=== PATIENT | male | born 1970 | race Caucasian/White ===

== ENCOUNTER 2024-05-05 09:22 | Day surgery (SDC) | payer OTHER ==
[2024-05-05 09:44] VITALS: BMI 26.6
[2024-05-05] MEDS ORDERED: KETAMINE HCL 100 MG/ML - 5ML VIAL ONE (10:09)
[2024-05-05 11:51] VITALS: RESP 16; TEMP 97.1
[2024-05-05 13:30] VITALS: BP 141/99; PULSE 72
== END 2024-05-05 12:40 | disposition home or self-care (01) ==
LOC: FECT 09:22
PROVIDERS: ATTEND Psychiatry & Neurology Psychiatry
PROC: GZB4ZZZ Other Electroconvulsive Therapy (ICD-10-PCS; principal; 2024-05-05 10:25)
DX: F33.2 Major depressive disorder, recurrent severe without psychotic features (principal)
CPT/HCPCS: 90870; 94760

== ENCOUNTER 2024-05-10 09:05 | Day surgery (SDC) | payer OTHER ==
[2024-05-03 15:35] VITALS: BMI 26.4
[2024-05-10] MEDS ORDERED: KETAMINE HCL 100 MG/ML - 5ML VIAL ONE (10:49)
[2024-05-10 11:55] VITALS: PULSE 74; RESP 18; TEMP 97.7
[2024-05-10 12:23] VITALS: BP 145/71
== END 2024-05-10 12:40 | disposition home or self-care (01) ==
LOC: FECT 09:05
PROVIDERS: ATTEND Student in an Organized Health Care Education/Training Program
PROC: GZB4ZZZ Other Electroconvulsive Therapy (ICD-10-PCS; principal; 2024-05-10 11:02)
DX: F33.2 Major depressive disorder, recurrent severe without psychotic features (principal)
CPT/HCPCS: 90870; 94760

== ENCOUNTER 2024-05-13 06:57 | Day surgery (SDC) | payer OTHER ==
[2024-05-04 16:27] VITALS: BMI 26.6
[2024-05-13 09:18] VITALS: RESP 18; TEMP 98
[2024-05-13 10:21] VITALS: BP 152/80; PULSE 74
== END 2024-05-13 10:17 | disposition home or self-care (01) ==
LOC: FECT 06:57
PROVIDERS: ATTEND Student in an Organized Health Care Education/Training Program
PROC: GZB4ZZZ Other Electroconvulsive Therapy (ICD-10-PCS; principal; 2024-05-13 08:23)
DX: F33.2 Major depressive disorder, recurrent severe without psychotic features (principal)
CPT/HCPCS: 90870; 94760

== ENCOUNTER 2024-05-19 08:36 | Day surgery (SDC) | payer OTHER ==
[2024-05-19 08:53] VITALS: BMI 26.6
[2024-05-19 11:30] VITALS: RESP 16
[2024-05-19 11:37] VITALS: TEMP 97.5
[2024-05-19 12:38] VITALS: BP 153/104; PULSE 84
== END 2024-05-19 12:35 | disposition home or self-care (01) ==
LOC: FECT 08:36
PROVIDERS: ATTEND Psychiatry & Neurology Psychiatry
PROC: GZB4ZZZ Other Electroconvulsive Therapy (ICD-10-PCS; principal; 2024-05-19 10:46)
DX: F33.2 Major depressive disorder, recurrent severe without psychotic features (principal)
CPT/HCPCS: 90870; 94760

== ENCOUNTER 2024-05-24 10:10 | Day surgery (SDC) | payer OTHER ==
[2024-05-16 12:24] VITALS: BMI 26.6
[2024-05-24 13:05] VITALS: RESP 19; TEMP 97.7
[2024-05-24 13:23] VITALS: BP 133/93; PULSE 75
== END 2024-05-24 13:28 | disposition home or self-care (01) ==
LOC: FECT 10:10
PROVIDERS: ATTEND Student in an Organized Health Care Education/Training Program
PROC: GZB4ZZZ Other Electroconvulsive Therapy (ICD-10-PCS; principal; 2024-05-24 11:48)
DX: F32.A Depression, unspecified (principal)
CPT/HCPCS: 90870; 94760

== ENCOUNTER 2024-06-09 09:36 | Day surgery (SDC) | payer OTHER ==
[2024-05-30 10:02] VITALS: BMI 26.6
[2024-06-09] MEDS ORDERED: KETAMINE HCL 100 MG/ML - 5ML VIAL ONE (10:14)
[2024-06-09 11:34] VITALS: RESP 18; TEMP 97.4
[2024-06-09 12:35] VITALS: BP 130/87; PULSE 88
== END 2024-06-09 12:25 | disposition home or self-care (01) ==
LOC: FECT 09:36
PROVIDERS: ATTEND Student in an Organized Health Care Education/Training Program
PROC: GZB4ZZZ Other Electroconvulsive Therapy (ICD-10-PCS; principal; 2024-06-09 10:40)
DX: F32.A Depression, unspecified (principal)
CPT/HCPCS: 90870; 94760

== ENCOUNTER 2024-06-14 13:00 | Day surgery (SDC) | payer OTHER ==
[2024-06-14] MEDS ORDERED: KETAMINE HCL 100 MG/ML - 5ML VIAL ONE (13:33)
[2024-06-14 15:20] VITALS: BP 150/90; PULSE 88; RESP 18; BMI 26.6
[2024-06-14 15:26] VITALS: TEMP 98
== END 2024-06-14 15:45 | disposition home or self-care (01) ==
LOC: FECT 13:00
PROVIDERS: ATTEND Student in an Organized Health Care Education/Training Program
PROC: GZB4ZZZ Other Electroconvulsive Therapy (ICD-10-PCS; principal; 2024-06-14 13:50)
DX: F32.A Depression, unspecified (principal)
CPT/HCPCS: 90870; 94760

== ENCOUNTER 2024-06-30 09:49 | Day surgery (SDC) | payer OTHER ==
[2024-06-30 10:10] VITALS: BMI 26.6
[2024-06-30] MEDS ORDERED: KETAMINE HCL 100 MG/ML - 5ML VIAL ONE (11:05)
[2024-06-30 11:48] VITALS: TEMP 97
[2024-06-30 12:24] VITALS: RESP 18
[2024-06-30 12:32] VITALS: BP 144/94; PULSE 89
== END 2024-06-30 14:15 | disposition home or self-care (01) ==
LOC: FECT 09:49
PROVIDERS: ATTEND Student in an Organized Health Care Education/Training Program
PROC: GZB4ZZZ Other Electroconvulsive Therapy (ICD-10-PCS; principal; 2024-06-30 11:15)
DX: F32.A Depression, unspecified (principal)
CPT/HCPCS: 90870; 94760

== ENCOUNTER 2024-07-05 09:38 | Day surgery (SDC) | payer OTHER ==
[2024-06-30 14:55] VITALS: BMI 26.6
[2024-07-05 13:02] VITALS: BP 144/89; PULSE 88; RESP 18; TEMP 97
== END 2024-07-05 13:50 | disposition home or self-care (01) ==
LOC: FECT 09:38
PROVIDERS: ATTEND Student in an Organized Health Care Education/Training Program
PROC: GZB4ZZZ Other Electroconvulsive Therapy (ICD-10-PCS; principal; 2024-07-05 11:39)
DX: F32.A Depression, unspecified (principal)
CPT/HCPCS: 90870; 94760

== ENCOUNTER 2024-07-07 12:01 | Day surgery (SDC) | payer OTHER ==
[2024-07-05 14:47] VITALS: BMI 26.6
[2024-07-07 14:39] VITALS: TEMP 98
[2024-07-07 15:35] VITALS: RESP 18
[2024-07-07 15:37] VITALS: BP 131/93; PULSE 88
== END 2024-07-07 15:30 | disposition home or self-care (01) ==
LOC: FECT 12:01
PROVIDERS: ATTEND Student in an Organized Health Care Education/Training Program
PROC: GZB4ZZZ Other Electroconvulsive Therapy (ICD-10-PCS; principal; 2024-07-07 13:56)
DX: F32.A Depression, unspecified (principal)
CPT/HCPCS: 90870; 94760

== ENCOUNTER 2024-07-12 09:33 | Day surgery (SDC) | payer OTHER ==
[2024-07-07 14:39] VITALS: BMI 26.6
[2024-07-12] MEDS ORDERED: KETAMINE HCL 100 MG/ML - 5ML VIAL ONE (09:58)
[2024-07-12 11:26] VITALS: RESP 18
[2024-07-12 11:39] VITALS: TEMP 97.8
[2024-07-12 13:22] VITALS: BP 148/98; PULSE 96
== END 2024-07-12 13:00 | disposition home or self-care (01) ==
LOC: FECT 09:33
PROVIDERS: ATTEND Psychiatry & Neurology Psychiatry
PROC: GZB4ZZZ Other Electroconvulsive Therapy (ICD-10-PCS; principal; 2024-07-12 10:23)
DX: F32.A Depression, unspecified (principal)
CPT/HCPCS: 90870; 94760

== ENCOUNTER 2024-07-14 11:31 | Day surgery (SDC) | payer OTHER ==
[2024-07-07 14:44] VITALS: BMI 26.6
[2024-07-14 11:51] VITALS: TEMP 97.3
[2024-07-14] MEDS ORDERED: KETAMINE HCL 100 MG/ML - 5ML VIAL ONE (12:08)
[2024-07-14 13:24] VITALS: RESP 18
[2024-07-14 13:42] VITALS: BP 140/80; PULSE 87
== END 2024-07-14 14:00 | disposition home or self-care (01) ==
LOC: FECT 11:31
PROVIDERS: ATTEND Psychiatry & Neurology Psychiatry
PROC: GZB4ZZZ Other Electroconvulsive Therapy (ICD-10-PCS; principal; 2024-07-14 12:27)
DX: F32.A Depression, unspecified (principal)
CPT/HCPCS: 90870; 94760

== ENCOUNTER → 2024-07-21 | Day surgery (SDC) | payer OTHER ==
[2024-07-18 08:50] VITALS: BMI 26.6
[~2024-07-21] MED LIST: KETAMINE HCL 200 MG/20 ML VIAL ONE; KETOROLAC TROMETHAMINE 30 MG/1 ML VIAL ONE; PROPOFOL 20 ML ONE; SUCCINYLCHOLINE CHLORIDE 200 MG/10 ML SYRINGE ONE
[2024-07-21 11:48] VITALS: RESP 16
[2024-07-21 11:58] VITALS: PULSE 95; TEMP 98.6
[2024-07-21 12:25] VITALS: BP 152/92
== END | disposition home or self-care (01) ==
LOC: FECT 09:45
PROVIDERS: ATTEND Student in an Organized Health Care Education/Training Program
PROC: GZB4ZZZ Other Electroconvulsive Therapy (ICD-10-PCS; principal; 2024-07-21 11:11)
DX: F33.2 Major depressive disorder, recurrent severe without psychotic features (principal)
CPT/HCPCS: 90870; 94760

== ENCOUNTER 2024-08-04 12:30 | Day surgery (SDC) | payer OTHER ==
[2024-08-02 16:04] VITALS: BMI 29.8
[2024-08-04 12:47] VITALS: RESP 18
[2024-08-04] MEDS ORDERED: KETAMINE HCL 100 MG/ML - 5ML VIAL ONE (15:18)
[2024-08-04] MEDS ORDERED: PROPOFOL 20 ML ONE (15:21)
[2024-08-04] MEDS ORDERED: LIDOCAINE HCL/PF 2% SDV 5ML VIAL ONE (15:21)
[2024-08-04] MEDS ORDERED: DEXAMETHASONE SOD PHOSPHATE 4 MG/1 ML VIAL ONE (15:37)
[2024-08-04] MEDS ORDERED: ONDANSETRON 4 MG/2 ML VIAL ONE (15:37)
[2024-08-04 16:20] VITALS: TEMP 97.4
[2024-08-04 17:11] VITALS: BP 136/74; PULSE 83
== END 2024-08-04 17:12 | disposition home or self-care (01) ==
LOC: FECT 12:30
PROVIDERS: ATTEND Student in an Organized Health Care Education/Training Program
PROC: GZB4ZZZ Other Electroconvulsive Therapy (ICD-10-PCS; principal; 2024-08-04 15:30)
DX: F32.A Depression, unspecified (principal)
CPT/HCPCS: 90870; 94760

== ENCOUNTER 2024-08-11 10:31 | Day surgery (SDC) | payer OTHER ==
[2024-08-11 10:48] VITALS: BMI 29.8
[2024-08-11] MEDS ORDERED: KETAMINE HCL 100 MG/ML - 5ML VIAL ONE (11:46)
[2024-08-11 12:46] VITALS: RESP 19; TEMP 98.6
[2024-08-11 13:01] VITALS: BP 118/60; PULSE 82
== END 2024-08-11 13:46 | disposition home or self-care (01) ==
LOC: FECT 10:31
PROVIDERS: ATTEND Psychiatry & Neurology Psychiatry
PROC: GZB4ZZZ Other Electroconvulsive Therapy (ICD-10-PCS; principal; 2024-08-11 12:04)
DX: F32.A Depression, unspecified (principal)
CPT/HCPCS: 90870; 94760

== ENCOUNTER 2024-08-18 09:23 | Day surgery (SDC) | payer OTHER ==
[2024-08-16 07:25] VITALS: BMI 29.8
[2024-08-18] MEDS ORDERED: KETAMINE HCL 100 MG/ML - 5ML VIAL ONE (10:53)
[2024-08-18 12:12] VITALS: RESP 18; TEMP 97.8
[2024-08-18 13:43] VITALS: BP 128/81; PULSE 84
== END 2024-08-18 13:15 | disposition home or self-care (01) ==
LOC: FECT 09:23
PROVIDERS: ATTEND Psychiatry & Neurology Psychiatry
PROC: GZB4ZZZ Other Electroconvulsive Therapy (ICD-10-PCS; principal; 2024-08-18 11:14)
DX: F32.A Depression, unspecified (principal)
CPT/HCPCS: 90870; 94760

== ENCOUNTER 2024-08-25 09:09 | Day surgery (SDC) | payer OTHER ==
[2024-08-25 09:41] VITALS: BMI 28.9
[2024-08-25] MEDS ORDERED: SUCCINYLCHOLINE CHLORIDE 200 MG/10 ML SYRINGE ONE (10:07)
[2024-08-25] MEDS ORDERED: KETOROLAC TROMETHAMINE 30 MG/1 ML VIAL ONE (10:15)
[2024-08-25] MEDS ORDERED: PHENYLEPHRINE HCL 10 MG/1 ML SINGLE DOSE VIAL ONE (10:15)
[2024-08-25] MEDS ORDERED: ONDANSETRON 4 MG/2 ML VIAL ONE (10:15)
[2024-08-25] MEDS ORDERED: ATROPINE SO4 0.4 MG/1 ML VIAL ONE (10:15)
[2024-08-25] MEDS ORDERED: DEXAMETHASONE SOD PHOSPHATE 4 MG/1 ML VIAL ONE (10:15)
[2024-08-25] MEDS ORDERED: PROPOFOL 20 ML ONE (10:16)
[2024-08-25] MEDS ORDERED: KETAMINE HCL 100 MG/ML - 5ML VIAL ONE (10:39)
[2024-08-25 12:29] VITALS: RESP 18; TEMP 98
[2024-08-25 12:31] VITALS: BP 139/79; PULSE 77
== END 2024-08-25 12:10 | disposition home or self-care (01) ==
LOC: FECT 09:09
PROVIDERS: ATTEND Student in an Organized Health Care Education/Training Program
PROC: GZB4ZZZ Other Electroconvulsive Therapy (ICD-10-PCS; principal; 2024-08-25 10:57)
DX: F32.A Depression, unspecified (principal)
CPT/HCPCS: 90870; 94760

== ENCOUNTER 2024-09-08 13:25 | Day surgery (SDC) | payer OTHER ==
[2024-09-02 10:25] VITALS: BMI 28.9
[2024-09-08 15:25] VITALS: PULSE 84; RESP 16; TEMP 98.2
[2024-09-08 15:56] VITALS: BP 129/74
== END 2024-09-08 16:30 | disposition home or self-care (01) ==
LOC: FECT 13:25
PROVIDERS: ATTEND Student in an Organized Health Care Education/Training Program
PROC: GZB4ZZZ Other Electroconvulsive Therapy (ICD-10-PCS; principal; 2024-09-08 14:28)
DX: F32.A Depression, unspecified (principal)
CPT/HCPCS: 90870; 94760

== ENCOUNTER 2024-10-24 10:06 | Day surgery (SDC) | payer OTHER ==
[2024-10-24 11:07] VITALS: RESP 16; BMI 28.5
[2024-10-24 11:58] LABS: HEMATOCRIT 42.5 % (40.1-51.0); HEMOGLOBIN 14.3 g/dL (13.7-17.5); MCHC 33.6 g/dl (32.3-36.5); MEAN CELL VOLUME 89.1 fl (79.0-92.2); MEAN PLT VOLUME 9.8 fl (9.4-12.4); PLATELET COUNT 311 x10^3/uL (163-337); RDW 12.3 % (12.2-16.1)
[2024-10-24] MEDS ORDERED: KETAMINE HCL 100 MG/ML - 5ML VIAL ONE (12:30)
[2024-10-24 12:33] LABS: ALBUMIN 4.8 g/dl (3.4-5.0); BILIRUBIN,TOTAL 0.7 mg/dl (0.2-1); CREATININE 0.8 mg/dl (0.6-1.3); POTASSIUM 4.5 mmol/L (3.5-5.1)
[2024-10-24 13:07] VITALS: TEMP 98.7
[2024-10-24 13:34] VITALS: PULSE 78
[2024-10-24 13:56] VITALS: BP 139/94
== END 2024-10-24 14:20 | disposition home or self-care (01) ==
LOC: FECT 10:06
PROVIDERS: ATTEND Student in an Organized Health Care Education/Training Program
PROC: GZB4ZZZ Other Electroconvulsive Therapy (ICD-10-PCS; principal; 2024-10-24 12:48)
DX: F32.A Depression, unspecified (principal)
CPT/HCPCS: 36415; 80053; 85027; 90870; 93005; 93010; 94760

== ENCOUNTER 2024-11-08 10:05 | Day surgery (SDC) | payer OTHER ==
[2024-10-25 16:21] VITALS: BMI 28.5
[2024-11-08] MEDS ORDERED: KETAMINE HCL 100 MG/ML - 5ML VIAL ONE (11:42)
[2024-11-08 12:27] VITALS: RESP 16
[2024-11-08 12:47] VITALS: TEMP 98
[2024-11-08 13:09] VITALS: BP 158/96; PULSE 96
== END 2024-11-08 14:00 | disposition home or self-care (01) ==
LOC: FECT 10:05
PROVIDERS: ATTEND Student in an Organized Health Care Education/Training Program
PROC: GZB4ZZZ Other Electroconvulsive Therapy (ICD-10-PCS; principal; 2024-11-08 11:57)
DX: F32.A Depression, unspecified (principal)
CPT/HCPCS: 90870; 94760